=== PATIENT | male | born 1955 | race Caucasian/White ===

== ENCOUNTER 2022-12-30 00:31 | Day surgery (SDC) | payer MEDICARE, SELFPAY ==
[2022-12-21 13:49] VITALS: BMI 23.1
[2022-12-30 09:40] VITALS: BP 106/75; PULSE 68; RESP 16; TEMP 36.2; O2SAT 100; BMI 24.3
[2022-12-30] MEDS: GENTAMICIN 80MG/SOD CHL 50 ML 80 MG/50 ML BAG 100 MG IVPB (10:01)
[2022-12-30] MEDS: LACTATED RINGERS 1,000 ML 150 ML IV CONT (10:03)
--- NOTE | 2022-12-30 10:04 | PM.HPGS ---
History of Present Illness History of Present Illness Consent: Risks, benefits, and alternatives have been discussed and questions answered. Patient agrees to proceed with procedure. Chief complaint: hx colon polyps neoplasm screening Narrative: Elvis Correa is a 67 year old male Presents for screening colonoscopy. Patient has a history of colon polyp being removed from the colon 2016. Patient's current weight appetite bowel movements are normal. Patient denies abdominal pain. Patient has had no bleeding. Family history is noncontributory. Review of Systems Review of Systems: Review of systems noncontributory. [facility] Past Medical History Medical History (Updated 10/12/22 @ 10:04 by Teodoro Cabrera MD) Abnormal CT of the chest Abnormal PFT Anaphylaxis due to hymenoptera venom Anticoagulant long-term use Encounter for screening for malignant neoplasm of colon Granulomatous disease, chronic Lung nodule Surgical History Surgical History (Updated 10/12/22 @ 09:07 by Whit Soto [facility]) H/O colonoscopy History of mitral valve replacement 2015? Dr. Delatorre Family History Family History Sibling Family history of thyroid disease Family history of anemia Mother Patient's mother is in good health Father Family history of chronic obstructive pulmonary disease Social History Social History (Updated 10/12/22 @ 09:06 by Whit Soto [facility]) Smoking status: Never smoker Alcohol intake: former Substance use: never Substance use type: does not use Living arrangements: with family Occupation/Education: retired Spiritual care concerns: No Meds Home Medications and Allergies Home Medications Medication Instructions Recorded Confirmed Type epinephrine 0.3 mg/0.3 mL 0.3 mg (0.3 mL) IM ONCE #2 ea 07/21/22 12/30/22 Rx injection, auto-injector (EpiPen 2-Magdiel) aspirin 81 mg chewable tablet 81 mg PO DAILY 07/26/22 12/30/22 History levetiracetam 500 mg tablet 500 mg PO Q12H 07/26/22 12/30/22 History warfarin 10 mg tablet 10 mg PO .COMPLEX #58 tabs 12/06/22 12/30/22 Rx warfarin 7.5 mg tablet See Rx Instructions PO .COMPLEX 12/06/22 12/30/22 Rx #32 tabs atorvastatin 40 mg tablet 40 mg PO HS 12/21/22 12/30/22 History Allergies Allergy/AdvReac Type Severity Reaction Status Date / Time lorazepam Allergy Intermediate Agitated Verified 12/30/22 09:38 meperidine Allergy Intermediate Agitated Verified 12/30/22 09:38 midazolam Allergy Unknown Combative Verified 12/30/22 09:38 wasp Allergy Severe Anaphylaxis Uncoded 12/30/22 09:38 Vital Signs Vital Signs - 24 hr 12/30/22 09:40 Temperature 97.2 F L Pulse Rate 68 Respiratory Rate 16 Blood Pressure 106/75 Pulse Oximetry 100 Oxygen Delivery Room Air Exam Narrative: Physical exam reveals patient to be alert. Vital signs stable. HEENT exam is unremarkable. Patient is anicteric. Lungs are clear to auscultation and percussion. Heart is without murmur or extra sounds. Abdomen bowel sounds present soft nontender with no organomegaly. Digital external rectal exam is normal. Assessment and Plan Assessment and plan (1) Encounter for screening for malignant neoplasm of colon: Code(s): Z12.11 - Encounter for screening for malignant neoplasm of colon Status: Acute Assessment and Plan: Patient presents for screening colonoscopy. He does have a history of a polyp removed from the colon 5 years ago. Further recommendations may be given after endoscopy.
[2022-12-30 10:24] LABS: INR 1.2; Prothrombin Time 14.3 Seconds (11.1-14.7)
[2022-12-30] MEDS: AMPICILLIN 2 GM/NS 100 ML 2 GM/100 ML BAG IVPB (10:33)
--- NOTE | 2022-12-30 10:41 | WPDANESEPPF ---
Anes - Initial Pre Proc Eval Procedure: Operation Date: 12/30/22 10:30 Proposed Procedures p Screening Colonoscopy - Kenn Delatorre MD Date/Time: 12/30/22 10:41 Surgeon: Kenn Delatorre MD Pre Op Diagnosis: hx colon polyps neoplasm screening Patient Data Age: 67 Gender: M Height: 1.8 m Weight: 79 kg Last Vital Signs Temp 97.2 F L 12/30/22 09:40 Pulse 68 12/30/22 09:40 Resp 16 12/30/22 09:40 BP 106/75 12/30/22 09:40 Pulse Ox 100 12/30/22 09:40 O2 Del Method Room Air 12/30/22 09:40 Allergies Allergy/AdvReac Type Severity Reaction Status Date / Time lorazepam Allergy Intermediate Agitated Verified 12/30/22 09:38 meperidine Allergy Intermediate Agitated Verified 12/30/22 09:38 midazolam Allergy Unknown Combative Verified 12/30/22 09:38 wasp Allergy Severe Anaphylaxis Uncoded 12/30/22 09:38 Home Medications Medication Instructions Recorded Confirmed Type epinephrine 0.3 mg/0.3 mL 0.3 mg (0.3 mL) IM ONCE #2 ea 07/21/22 12/30/22 Rx injection, auto-injector (EpiPen 2-Magdiel) aspirin 81 mg chewable tablet 81 mg PO DAILY 07/26/22 12/30/22 History levetiracetam 500 mg tablet 500 mg PO Q12H 07/26/22 12/30/22 History warfarin 10 mg tablet 10 mg PO .COMPLEX #58 tabs 12/06/22 12/30/22 Rx warfarin 7.5 mg tablet See Rx Instructions PO .COMPLEX 12/06/22 12/30/22 Rx #32 tabs atorvastatin 40 mg tablet 40 mg PO HS 12/21/22 12/30/22 History Laboratory Tests 12/30/22 09:50 PT 14.3 Seconds Seconds (11.1-14.7) INR 1.2 Patient hx anesthesia problems: none Family hx anesthesia problems: none Results Review: All pre-operative results and documents have been reviewed as part of the pre-operative evaluation. [facility] Past Medical History Medical History (Updated 10/12/22 @ 10:04 by Teodoro Cabrera MD) Abnormal CT of the chest Abnormal PFT Anaphylaxis due to hymenoptera venom Anticoagulant long-term use Encounter for screening for malignant neoplasm of colon Granulomatous disease, chronic Lung nodule Surgical History Surgical History (Updated 10/12/22 @ 09:07 by Whit Soto [facility]) H/O colonoscopy History of mitral valve replacement 2015? Dr. Delatorre Family History Family History Sibling Family history of thyroid disease Family history of anemia Mother Patient's mother is in good health Father Family history of chronic obstructive pulmonary disease Social History Social History (Updated 10/12/22 @ 09:06 by Whit Soto [facility]) Smoking status: Never smoker Alcohol intake: former Substance use: never Substance use type: does not use Living arrangements: with family Occupation/Education: retired Spiritual care concerns: No Anes - Eval Final PreProcedure Day of Procedure 12/30/22 10:41 Patient weight: normal Heart: regular rate and rhythm Lungs: clear to auscultation Airway: Mallampati scale class II Neurological: alert and oriented Last oral intake: >/= 8 hours ASA classification: III Emergent: no Anesthetic plan: proceed Anesthesia type and monitoring: general GIVS and standard monitoring Results Review: All pre-operative results and documents have been reviewed as part of the pre-operative evaluation. Informed Consent: The patient's anesthetic plan and its attendant risks and benefits were discussed with the patient/family/POA. Questions were solicited and answers provided to the satisfaction of the patient/family/POA.
[2022-12-30 10:59] VITALS: BP 103/67; PULSE 64; RESP 13; O2SAT 100
[2022-12-30 11:09] VITALS: BP 103/75; PULSE 67; RESP 20; O2SAT 100
[2022-12-30 11:19] VITALS: BP 107/74; PULSE 68; RESP 18; O2SAT 100
== END 2022-12-30 11:30 | disposition home or self-care (01) ==
PROVIDERS: PCP Family Medicine; Visit Provider Internal Medicine Gastroenterology
PROC: 0DJD8ZZ Inspection of Lower Intestinal Tract, Via Natural or Artificial Opening Endoscopic (ICD-10-PCS; CPT 45378; principal; 2022-12-30 10:30)
DX: Z12.11 Encounter for screening for malignant neoplasm of colon (principal); D12.2 Benign neoplasm of ascending colon; K57.30 Diverticulosis of large intestine without perforation or abscess without bleeding; K64.8 Other hemorrhoids; Z95.4 Presence of other heart-valve replacement; Z79.01 Long term (current) use of anticoagulants; Z79.82 Long term (current) use of aspirin
CPT/HCPCS: 45385; 36415; 85610; 88305; J0290; J1580; J2704; J7120

== ENCOUNTER 2023-11-17 19:05 | Emergency (ER) | payer MEDICARE, SELFPAY ==
--- NOTE | ~2023-11-17 | XR_ITS ---
EXAM: XR knee RT min 4V DATE: 11/17/2023 19:38 HISTORY: knelt down on knee and now has hematoma . COMPARISON: None available. FINDINGS: Normal mineralization. No fracture or dislocation. No lytic or blastic lesion. Mild tricom partmental knee arthritis, with chondrocalcinosis. No erosion or periosteal change. Marked. No soft t issue swelling. IMPRESSION: No acute osseous finding in the right knee. Prepatellar soft tissue swelling. Consider he matoma or bursitis. Reviewed, dictated and finalized at location K. [facility] IMPRESSION: No acute osseous finding in the right knee. Prepatellar soft tissue swelling. Consider hematoma or bursitis.
--- NOTE | 2023-11-17 19:10 | ED.LOWEXIN ---
HPI - Extremity Injury (Lower) General Chief Complaint: Extremity Injury, Lower Stated Complaint: Swollen rt knee Time Seen by Provider: 11/17/23 19:10 Source: patient Mode of arrival: ambulatory Limitations: no limitations History of Present Illness HPI Narrative: Elvis is a 68-year-old male patient presenting to the clinic today with complaints of swollen right knee that occurred 45 minutes ago. He reports he was kneeling down to pee in the toilet and when he got up and pulled his pants up he noticed that his right knee was swollen. Does have bruising and swelling noted to the superior anterior knee. Patient is on Coumadin. Related Data Home Medications Medication Instructions Recorded Confirmed levetiracetam 500 mg tablet 250 mg PO Q12H 05/18/23 11/17/23 Allergies Allergy/AdvReac Type Severity Reaction Status Date / Time lorazepam Allergy Intermediate Agitated Verified 11/17/23 19:28 meperidine Allergy Intermediate Agitated Verified 11/17/23 19:28 midazolam Allergy Unknown Combative Verified 11/17/23 19:28 wasp Allergy Severe Anaphylaxis Uncoded 11/17/23 19:29 Review of Systems Review of Systems: Pertinent positives per HPI. Patient denies any fever, chills, rash, headache, visual changes, dizziness, cough, runny nose, sore throat, shortness of breath, chest pain, palpitations, nausea, vomiting, diarrhea, constipation, abdominal pain, or any urinary issues. [facility] Past Medical History Medical History Abnormal CT of the chest Abnormal PFT Anaphylaxis due to hymenoptera venom Anticoagulant long-term use Encounter for screening for malignant neoplasm of colon Granulomatous disease, chronic Hyperglycemia Lung nodule Surgical History Surgical History H/O colonoscopy History of mitral valve replacement 2016? Dr. Delatorre Family History Family History Sibling Family history of thyroid disease Family history of anemia Mother Patient's mother is in good health Father Family history of chronic obstructive pulmonary disease Social History Social History Smoking status: Never smoker Alcohol intake: former Substance use: never Substance use type: does not use Living arrangements: with family Occupation/Education: retired Spiritual care concerns: No Comments At the time of my signature, I reviewed and agree with the nursing past medical, surgical, social, and family history. There is no relevant family history pertinent to the patient complaint. Exam Narrative: General: Well-developed, well nourished, in no apparent distress Head: Normocephalic, atraumatic. Cardio: Regular rate and rhythm, s1 and s2 normal, no murmur appreciated. Resp: Clear to auscultation bilaterally, no rhonchi, rales, wheezing or rubs. Musculoskeletal: No deformity, tender to palpation over the superior anterior knee with large hematoma, varicose veins noted to bilateral knees/lower extremities, grossly normal range of motion, muscle strength strong and equal, peripheral pulse strong, no edema, no cyanosis, normal gait and station Course Course Emergency Course: Portions of this record may have been created with voice recognition software. Level of Care: Express Care Visit Vital Signs Vital signs: Vital signs reviewed MDM - Extremity Injury (Lower) MDM Narrative Medical decision making narrative: At the time of visit patient is resting comfortably on the exam table. Patient appears to be nontoxic. I suspect patient knelt down on the right knee possibly injuring a varicose vein which in return is causing a hematoma to the right anterior/superior knee. X-ray was performed to rule out traumatic injury to the bone. Siva wrap was applied and ice pack was given. S
[2023-11-17 19:20] VITALS: BP 106/74; PULSE 66; RESP 18; TEMP 36.2; O2SAT 100
== END 2023-11-17 19:55 | disposition home or self-care (01) ==
PROVIDERS: Emergency Provider Nurse Practitioner Family; PCP Family Medicine
DX: S80.01XA Contusion of right knee, initial encounter (principal); X58.XXXA Exposure to other specified factors, initial encounter
CPT/HCPCS: 73564; 99213; G0463

== ENCOUNTER 2024-08-11 15:32 | Emergency (ER) | payer MEDICARE, SELFPAY ==
[2024-08-11 15:49] VITALS: BP 112/73; PULSE 62; RESP 18; TEMP 36.6; O2SAT 97
--- NOTE | 2024-08-11 16:11 | ED.WOUNDLAC ---
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 The hand was struck by a trailer hitch and pinned between the bed of the truck. States the site had minimal bleeding. He cleansed it with a baby wipe and applied a dressing yesterday. Today he evaluated the laceration, applied neosporin, and wanted evaluation. Denies pain, decreased strength or ROM to the thumb. No active bleeding. Unsure of last tetanus. Related Data Home Medications Medication Instructions Recorded Confirmed levetiracetam 500 mg tablet 250 mg PO Q12H 05/18/23 08/11/24 [id number] 300 mcg-K 60 1 tablet PO DAILY 11/18/23 08/11/24 mcg-lycop 600 mcg-lutein 300 mcg tablet (Centrum Silver Ultra Men's) magnesium oxide 400 mg (241.3 mg 400 mg PO DAILY 08/02/24 08/11/24 magnesium) tablet (MagOx) atorvastatin 40 mg tablet 40 mg PO QHS 08/03/24 08/11/24 tamsulosin 0.4 mg capsule 0.4 mg PO DAILY 08/03/24 08/11/24 aspirin 81 mg chewable tablet 81 mg PO DAILY 08/11/24 08/11/24 Allergies Allergy/AdvReac Type Severity Reaction Status Date / Time lorazepam Allergy Intermediate Agitated Verified 08/11/24 15:56 meperidine Allergy Intermediate Agitated Verified 08/11/24 15:56 midazolam Allergy Unknown Combative Verified 08/11/24 15:56 wasp Allergy Severe Anaphylaxis Uncoded 08/11/24 15:56 Review of Systems Review of Systems: CONSTITUTIONAL: Denies body aches, fever, chills, or sweats. EYES: Denies visual changes, redness, or discharge. ENT: Denies rhinorrhea, congestion CARDIOVASCULAR: Denies chest pain, palpitations, or edema. RESPIRATORY: Denies cough or dyspnea. GASTROINTESTINAL: Denies abdominal pain, nausea, vomiting, or diarrhea. SKIN: reports left hand laceration MUSCULOSKELETAL: Denies back pain, joint pain, or myalgia. NEUROLOGIC: Denies headache, numbness, tingling, or weakness. [facility] Past Medical History Medical History Abnormal CT of the chest Abnormal PFT Anaphylaxis due to hymenoptera venom Anticoagulant long-term use coumadin-managed by cardio Encounter for screening for malignant neoplasm of colon Granulomatous disease, chronic History of CVA (cerebrovascular accident) Hyperglycemia Lung nodule Pre-diabetes Seizure with onset of stroke Surgical History Surgical History H/O colonoscopy History of artificial heart valve History of mitral valve replacement 2016? Dr. Delatorre Family History Family History Sibling Family history of thyroid disease Family history of anemia Mother Patient's mother is in good health Father Family history of chronic obstructive pulmonary disease Social History Social History Smoking status: Never smoker Alcohol intake: former Substance use: never Substance use type: does not use Living arrangements: with family Occupation/Education: retired Spiritual care concerns: No Comments At time of signature, I have reviewed and agree with nursing past medical, surgical, social and family history unless otherwise noted. Please see nursing chart for further information. There is no relevant family history pertinent to the presenting complaint Exam Narrative: GENERAL: Well-appearing EYES: conjunctivae clear, and EOMI. ENT: Mucous membranes moist. Oropharynx without edema, erythema or lesions. NECK: Supple. No lymphadenopathy CHEST: Clear to auscultation. HEART: Regular rate and rhythm. SKIN: Warm, dry. Left hand palmar aspect of 1st MCP with irregular laceration approx 1.5cm, gaping, No active bleeding.
[2024-08-11] MEDS: LIDOCAINE HCL 1% LOCAL INJ 2 ML AMPUL 4 ML INFILTRATE (16:41)
[2024-08-11] MEDS: TETANUS,DIPHTHERIA,AC PERTUSSIS ADULT (0.5 ML) BOOSTRIX IM (16:41)
== END 2024-08-11 17:12 | disposition home or self-care (01) ==
PROVIDERS: Emergency Provider Nurse Practitioner Family; PCP Physician Assistant Medical
DX: S61.012A Laceration without foreign body of left thumb without damage to nail, initial encounter (principal); X58.XXXA Exposure to other specified factors, initial encounter; Z23 Encounter for immunization; G40.909 Epilepsy, unspecified, not intractable, without status epilepticus; R73.03 Prediabetes; Z86.73 Personal history of transient ischemic attack (TIA), and cerebral infarction without residual deficits; Z95.2 Presence of prosthetic heart valve; Z79.82 Long term (current) use of aspirin
CPT/HCPCS: 12001; 90471; 90715; 99213; G0463